=== PATIENT | male | born 1965 | race Caucasian/White ===

== ENCOUNTER 2023-05-06 20:46 | Emergency (ER) | payer SELFPAY ==
[2023-05-06] MEDS ORDERED: Sodium Chloride 0.9% 10 ML Syringe FLUSH PRN (20:57)
[2023-05-06] MEDS ORDERED: Promethazine 25 MG/ML SDV IM ONE (20:58)
[2023-05-06 21:07] LABS: BASOPHILS PERCENT AUTO 1.4 % (0.0-1.0); EOSINOPHILS PERCENT AUTO 7.7 % (1.0-3.0); HEMATOCRIT 45.6 % (40.0-54.0); HEMOGLOBIN 15.5 g/dL (14.0-18.0); LYMPHOCYTES PERCENT AUTO 42.1 % (20.5-50.1); NEUTROPHILS PERCENT AUTO 40.8 % (42.2-75.2); PLATELET COUNT,PLT 227 10^3/uL (150-450); RED BLOOD CELL COUNT 4.85 10^6/uL (4.6-6.2); WHITE BLOOD CELL COUNT,WBC 7.6 10^3/uL (5.0-10.0)
[2023-05-06 21:27] LABS: A/G RATIO 0.8; ALBUMIN 3.5 g/dL (3.4-5.0); ANION GAP 14.1 mEq/L (7-13); BILIRUBIN TOTAL 0.4 mg/dL (0.2-1.0); BUN/CREATININE RATIO 14.6 (No establ ref range); CALCIUM 7.8 mg/dL (8.5-10.1); CREATININE 0.82 mg/dL (0.70-1.30); EST CRCL DRUG DOSING (CG) 99.39 mL/min; MAGNESIUM 1.7 mg/dL (1.8-2.4); POTASSIUM,K 3.1 mmol/L (3.5-5.1); PROTEIN TOTAL,TP 7.9 g/dL (6.4-8.2)
[2023-05-06] MEDS ORDERED: Potassium Chloride 10 MEQ Tab.ER PO ONE (21:32)
[2023-05-06 21:40] LABS: CORONAVIRUS COVID-19 NAA NEGATIVE (NEGATIVE); INFLUENZA A NAA NEGATIVE (NEGATIVE); INFLUENZA B NAA NEGATIVE (NEGATIVE)
[2023-05-06] MEDS ORDERED: hydrALAZINE 20 MG/ML SDV IVPUSH ONE (21:46)
== END 2023-05-06 22:10 | disposition home or self-care (01) ==
LOC: DL.ED 20:46
DX: I10 Essential (primary) hypertension (principal); Z20.822 Contact with and (suspected) exposure to COVID-19
CPT/HCPCS: 0240U; 36415; 71045; 80053; 80307; 83735; 84443; 84484; 85025; 93005; 96372; 99284; A9270; J2550; J3490

== ENCOUNTER 2023-05-19 09:43 | Inpatient (IN) | payer BC ==
[2023-05-19] MEDS ORDERED: Sodium Chloride 0.9% 10 ML Syringe FLUSH PRN (09:57)
[2023-05-19] MEDS ORDERED: Thiamine 100 MG in Sodium Chloride 0.9% 100 ML IV ONE (09:58)
[2023-05-19] MEDS ORDERED: Ondansetron 4 MG/2 ML SDV IV ONE ×2 (09:58→13:11)
[2023-05-19] MEDS ORDERED: Sodium Chloride 0.9% 1,000 ML IV ONE ×2 (09:58→10:59)
[2023-05-19 10:07] LABS: BASOPHILS PERCENT AUTO 0.7 % (0.0-1.0); EOSINOPHILS PERCENT AUTO 1.6 % (1.0-3.0); HEMATOCRIT 47.5 % (40.0-54.0); LYMPHOCYTES PERCENT AUTO 41.1 % (20.5-50.1); MEAN CORPUSCULAR HEMOGLOBIN 32.4 pg (27.0-34.0); MEAN CORPUSCULAR HGB CONC 33.7 g/dL (33.0-35.0); MEAN CORPUSCULAR VOLUME 96.2 fL (80-100); NEUTROPHILS PERCENT AUTO 50.6 % (42.2-75.2); PLATELET COUNT,PLT 202 10^3/uL (150-450); RED BLOOD CELL COUNT 4.94 10^6/uL (4.6-6.2); WHITE BLOOD CELL COUNT,WBC 6.9 10^3/uL (5.0-10.0)
[2023-05-19 10:25] LABS: INR 1.1 (0.9-1.2); PTT,PARTIAL THROMBOPLSTIN TIME 23.3 SEC (22.0-34.0)
[2023-05-19 10:30] LABS: A/G RATIO 0.9; ALBUMIN 3.7 g/dL (3.4-5.0); ANION GAP 17.8 mEq/L (7-13); BILIRUBIN TOTAL 1.1 mg/dL (0.2-1.0); BUN/CREATININE RATIO 9.5 (No establ ref range); CALCIUM 8.9 mg/dL (8.5-10.1); CREATININE 1.05 mg/dL (0.70-1.30); EST CRCL DRUG DOSING (CG) 70.04 mL/min; MAGNESIUM 1.5 mg/dL (1.8-2.4); POTASSIUM,K 3.8 mmol/L (3.5-5.1)
[2023-05-19] MEDS ORDERED: Magnesium Sulfate/Water 2 GM in Premix Bag 1 BAG IV ONE ×2 (10:58→10:59)
[2023-05-19] MEDS ORDERED: Iopamidol 612 MG/ML 100 ML Bottle IVPUSH ONE (11:00)
[2023-05-19] MEDS ORDERED: Heparin Sodium 5,000 Units/ML Vial IVPUSH ONE (12:34)
[2023-05-19] MEDS: Heparin Sodium/0.45% NaCl 25,000 UNITS/500 ML BAG IV SCH (12:50)
[2023-05-19] MEDS ORDERED: Pantoprazole 40 MG Vial IVPUSH ONE (13:11)
[2023-05-19 13:21] LABS: APPEARANCE,URINE SLIGHTLY CLOUDY (CLEAR); BILIRUBIN,URINE NEGATIVE (NEGATIVE); COLOR,URINE DARK YELLOW (YELLOW); GLUCOSE,URINE NEGATIVE (NEGATIVE); KETONES,URINE TRACE (NEGATIVE); LEUKOCYTE ESTERASE,URINE NEGATIVE (NEGATIVE); NITRITE,URINE NEGATIVE (NEGATIVE); OCCULT BLOOD,URINE TRACE-INTACT (NEGATIVE); PH,URINE 6.5 (5.0-9.0); PROTEIN,URINE 100 (NEGATIVE); UROBILINOGEN,URINE 0.2 mg/dL (0.2-1.0)
[2023-05-19 13:28] LABS: AMPHETAMINES,URINE NEGATIVE (NEGATIVE); BARBITURATES,URINE NEGATIVE (NEGATIVE); BENZODIAZEPINE,URINE NEGATIVE (NEGATIVE); MDMA (ECSTASY), URINE NEGATIVE (NEGATIVE); METHADONE,URINE NEGATIVE (NEGATIVE); METHAMPHETAMINES,URINE NEGATIVE (NEGATIVE); OPIATES,URINE NEGATIVE (NEGATIVE); OXYCODONE,URINE NEGATIVE (NEGATIVE); PHENCYCLIDINE,URINE NEGATIVE (NEGATIVE); TCA,URINE NEGATIVE (NEGATIVE)
[2023-05-19 13:44] LABS: WBC,URINE 0-5 /HPF (0-5/HPF)
[2023-05-19 13:47] LABS: EPITHELIAL CELLS,URINE MODERATE /HPF (NOT SEEN)
[2023-05-19 13:49] LABS: MUCUS,URINE FEW /LPF (NOT SEEN)
[2023-05-19 13:51] LABS: AMORPHOUS SEDIMENT,URINE OCCASIONAL /HPF (NOT SEEN)
[2023-05-19 13:59] LABS: HYALINE CASTS,URINE RARE
[2023-05-19 14:06] LABS: BACTERIA,URINE NOT SEEN /HPF (0-FEW/HPF)
[2023-05-19] MEDS ORDERED: LORazepam 2 MG/ML SDV IVPUSH ONE (14:26)
[2023-05-19] MEDS ORDERED: Flumazenil 0.1 MG/ML 5 ML MDV IVPUSH PRN (14:26)
[2023-05-19] MEDS ORDERED: LORazepam 2 MG/ML SDV ONE (14:30)
[2023-05-19] MEDS ORDERED: Ondansetron 4 MG/2 ML SDV IVPUSH PRN (15:40)
[2023-05-19] MEDS ORDERED: chlordiazePOXIDE 25 MG Cap PO SCH ×2 (15:45→16:15)
[2023-05-19] MEDS ORDERED: MVI, Adult with Vitamin K 10 ML, Folic Acid 1 MG, Thiamine 100 MG in Lactated Ringers 1... IV ONE ×4 (16:15)
[2023-05-19] MEDS: Thiamine 100 MG in Sodium Chloride 0.9% 50 ML IV SCH (16:39)
[2023-05-19] MEDS: Nicotine 7 MG/24 Hr Patch TRDERM SCH (16:40)
[2023-05-19] MEDS: LORazepam 2 MG/ML SDV IV PRN ×4 (16:52→23:58)
[2023-05-19] MEDS: Pantoprazole 40 MG Vial IVPUSH SCH (16:53)
[2023-05-19] MEDS: Sodium Chloride 0.9% 1,000 ML IV SCH (17:47)
[2023-05-19] MEDS: cloNIDine 0.1 MG Tab PO PRN ×2 (19:45→23:58)
[2023-05-19] MEDS: Ondansetron 4 MG/2 ML SDV IVPUSH PRN (19:46)
[2023-05-19] MEDS: chlordiazePOXIDE 25 MG Cap PO SCH (20:00)
[2023-05-19] MEDS: hydrALAZINE 20 MG/ML SDV IVPUSH PRN (21:45)
[2023-05-19] MEDS: oxyCODONE 5 MG Tab PO PRN (21:51)
[2023-05-19] MEDS: Metoprolol Succinate 50 MG Tab.ER PO SCH (23:58)
[2023-05-19] MEDS: Acetaminophen 325 MG Tab PO PRN (23:59)
[2023-05-20] MEDS: Sodium Chloride 0.9% 1,000 ML IV SCH (02:24)
[2023-05-20] MEDS: hydrALAZINE 20 MG/ML SDV IVPUSH PRN ×2 (02:26→16:44)
[2023-05-20] MEDS: oxyCODONE 5 MG Tab PO PRN ×2 (02:28→14:11)
[2023-05-20] MEDS: Ondansetron 4 MG/2 ML SDV IVPUSH PRN (02:30)
[2023-05-20] MEDS: LORazepam 2 MG/ML SDV IV PRN ×12 (02:32→23:00)
[2023-05-20] MEDS: Heparin Sodium/0.45% NaCl 25,000 UNITS/500 ML BAG IV SCH ×2 (02:38→17:45)
[2023-05-20 06:21] LABS: BASOPHILS PERCENT AUTO 0.7 % (0.0-1.0); HEMATOCRIT 37.1 % (40.0-54.0); HEMOGLOBIN 12.2 g/dL (14.0-18.0); LYMPHOCYTES PERCENT AUTO 19.1 % (20.5-50.1); MEAN CORPUSCULAR HEMOGLOBIN 32.5 pg (27.0-34.0); MEAN CORPUSCULAR HGB CONC 32.9 g/dL (33.0-35.0); MEAN CORPUSCULAR VOLUME 98.9 fL (80-100); MONOCYTES PERCENT AUTO 7.5 % (2-8); NEUTROPHILS PERCENT AUTO 69.7 % (42.2-75.2); PLATELET COUNT,PLT 123 10^3/uL (150-450); RED BLOOD CELL COUNT 3.75 10^6/uL (4.6-6.2); WHITE BLOOD CELL COUNT,WBC 5.7 10^3/uL (5.0-10.0)
[2023-05-20 06:39] LABS: ALBUMIN 2.9 g/dL (3.4-5.0); ANION GAP 10.4 mEq/L (7-13); BILIRUBIN TOTAL 1.5 mg/dL (0.2-1.0); BUN/CREATININE RATIO 7.6 (No establ ref range); CALCIUM 6.9 mg/dL (8.5-10.1); CREATININE 0.92 mg/dL (0.70-1.30); EST CRCL DRUG DOSING (CG) 88.59 mL/min; POTASSIUM,K 3.4 mmol/L (3.5-5.1); PROTEIN TOTAL,TP 6.2 g/dL (6.4-8.2)
[2023-05-20 06:41] LABS: A/G RATIO 0.88
[2023-05-20] MEDS: Pantoprazole 40 MG Vial IVPUSH SCH (08:43)
[2023-05-20] MEDS: Thiamine 100 MG in Sodium Chloride 0.9% 50 ML IV SCH (08:43)
[2023-05-20] MEDS: chlordiazePOXIDE 25 MG Cap PO SCH ×3 (08:44→20:24)
[2023-05-20] MEDS: Metoprolol Succinate 50 MG Tab.ER PO SCH (08:44)
[2023-05-20] MEDS: Nicotine 7 MG/24 Hr Patch TRDERM SCH (08:47)
[2023-05-20] MEDS ORDERED: Calcium Gluconate 3 GM in Sodium Chloride 0.9% 100 ML IV ONE (08:57)
[2023-05-20] MEDS: OLANZapine 10 MG Vial IM PRN ×2 (10:22→16:10)
[2023-05-20] MEDS ORDERED: Potassium Chloride 20 MEQ in Premix Bag 1 BAG IV ONE (16:07)
[2023-05-20 16:38] LABS: INR 1.1 (0.9-1.2)
[2023-05-20] MEDS ORDERED: Haloperidol Lactate 5 MG/ML SDV IVPUSH ONE (21:32)
[2023-05-20] MEDS ORDERED: Haloperidol Lactate 5 MG/ML SDV IM ONE (21:35)
[2023-05-21] MEDS: Sodium Chloride 0.9% 1,000 ML IV SCH (04:37)
[2023-05-21] MEDS: LORazepam 2 MG/ML SDV IV PRN ×5 (04:49→22:16)
[2023-05-21 05:10] LABS: ALBUMIN 2.9 g/dL (3.4-5.0); ANION GAP 11.6 mEq/L (7-13); BILIRUBIN TOTAL 2.8 mg/dL (0.2-1.0); BUN/CREATININE RATIO 4.2 (No establ ref range); CALCIUM 7.8 mg/dL (8.5-10.1); CREATININE 0.71 mg/dL (0.70-1.30); EST CRCL DRUG DOSING (CG) 114.79 mL/min; POTASSIUM,K 3.6 mmol/L (3.5-5.1); PROTEIN TOTAL,TP 6.6 g/dL (6.4-8.2)
[2023-05-21 05:16] LABS: A/G RATIO 0.78
[2023-05-21] MEDS: Thiamine 100 MG in Sodium Chloride 0.9% 50 ML IV SCH (08:35)
[2023-05-21] MEDS: Metoprolol Succinate 50 MG Tab.ER PO SCH (08:35)
[2023-05-21] MEDS: chlordiazePOXIDE 25 MG Cap PO SCH ×3 (08:35→20:14)
[2023-05-21] MEDS: Pantoprazole 40 MG Vial IVPUSH SCH (08:36)
[2023-05-21] MEDS: Nicotine 7 MG/24 Hr Patch TRDERM SCH (08:36)
[2023-05-21] MEDS: Heparin Sodium/0.45% NaCl 25,000 UNITS/500 ML BAG IV SCH (09:07)
[2023-05-21] MEDS: Acetaminophen 325 MG Tab PO PRN (10:20)
[2023-05-21] MEDS: Ondansetron 4 MG/2 ML SDV IVPUSH PRN (10:24)
[2023-05-21] MEDS ORDERED: Calcium Gluconate 2 GM in Sodium Chloride 0.9% 100 ML IV ONE (10:28)
[2023-05-21] MEDS: Warfarin 2 MG Tab PO SCH (13:15)
[2023-05-21] MEDS ORDERED: Magnesium Sulfate/Water 2 GM in Premix Bag 1 BAG IV SCH (14:00)
[2023-05-21] MEDS ORDERED: Magnesium Sulfate/Water 4 GM in Premix Bag 1 BAG IV ONE (14:00)
[2023-05-21] MEDS: Magnesium Sulfate/Water 2 GM in Premix Bag 1 BAG IV SCH ×2 (14:27→15:57)
[2023-05-21] MEDS: hydrALAZINE 20 MG/ML SDV IVPUSH PRN (15:35)
[2023-05-21] MEDS: oxyCODONE 5 MG Tab PO PRN (20:13)
[2023-05-21] MEDS: OLANZapine 10 MG Vial IM PRN (23:00)
[2023-05-21] MEDS ORDERED: Haloperidol Lactate 5 MG/ML SDV IM ONE (23:13)
[2023-05-22] MEDS: Heparin Sodium/0.45% NaCl 25,000 UNITS/500 ML BAG IV SCH ×2 (00:08→14:56)
[2023-05-22] MEDS: Sodium Chloride 0.9% 1,000 ML IV SCH ×3 (02:21→23:07)
[2023-05-22] MEDS: LORazepam 2 MG/ML SDV IV PRN ×2 (05:08→10:10)
[2023-05-22 05:15] LABS: INR 1.2 (0.9-1.2); PROTHROMBIN TIME 12.2 SEC (9.0-12.0); PTT,PARTIAL THROMBOPLSTIN TIME 59.3 SEC (22.0-34.0)
[2023-05-22 05:22] LABS: ALBUMIN 2.9 g/dL (3.4-5.0); ANION GAP 13.3 mEq/L (7-13); BILIRUBIN TOTAL 3.3 mg/dL (0.2-1.0); BUN/CREATININE RATIO 3.9 (No establ ref range); CALCIUM 7.8 mg/dL (8.5-10.1); CREATININE 1.27 mg/dL (0.70-1.30); EST CRCL DRUG DOSING (CG) 64.17 mL/min; POTASSIUM,K 3.3 mmol/L (3.5-5.1); PROTEIN TOTAL,TP 6.7 g/dL (6.4-8.2)
[2023-05-22 05:23] LABS: A/G RATIO 0.76
[2023-05-22] MEDS: Metoprolol Succinate 50 MG Tab.ER PO SCH (09:20)
[2023-05-22] MEDS: Nicotine 7 MG/24 Hr Patch TRDERM SCH (09:20)
[2023-05-22] MEDS: chlordiazePOXIDE 25 MG Cap PO SCH ×3 (09:20→20:20)
[2023-05-22] MEDS: Pantoprazole 40 MG Vial IVPUSH SCH (09:23)
[2023-05-22] MEDS: Thiamine 100 MG in Sodium Chloride 0.9% 50 ML IV SCH (09:24)
[2023-05-22] MEDS: Warfarin 2 MG Tab PO SCH (14:54)
[2023-05-22] MEDS ORDERED: Potassium Chloride 20 MEQ in Premix Bag 1 BAG IV ONE (17:18)
[2023-05-22] MEDS ORDERED: Calcium Gluconate 2 GM in Sodium Chloride 0.9% 100 ML IV ONE (17:18)
[2023-05-22] MEDS: oxyCODONE 5 MG Tab PO PRN (20:20)
[2023-05-23] MEDS: oxyCODONE 5 MG Tab PO PRN ×3 (02:03→20:58)
[2023-05-23 03:40] LABS: ALBUMIN 2.9 g/dL (3.4-5.0); ANION GAP 12.7 mEq/L (7-13); BILIRUBIN TOTAL 3.3 mg/dL (0.2-1.0); BUN/CREATININE RATIO 5.7 (No establ ref range); CREATININE 0.88 mg/dL (0.70-1.30); EST CRCL DRUG DOSING (CG) 92.62 mL/min; POTASSIUM,K 3.7 mmol/L (3.5-5.1); PROTEIN TOTAL,TP 6.9 g/dL (6.4-8.2)
[2023-05-23 03:41] LABS: A/G RATIO 0.73
[2023-05-23] MEDS: Heparin Sodium/0.45% NaCl 25,000 UNITS/500 ML BAG IV SCH ×2 (05:47→20:23)
[2023-05-23 06:18] LABS: INR 1.7 (0.9-1.2); PROTHROMBIN TIME 17.5 SEC (9.0-12.0)
[2023-05-23] MEDS: Metoprolol Succinate 50 MG Tab.ER PO SCH (09:32)
[2023-05-23] MEDS: Thiamine 100 MG in Sodium Chloride 0.9% 50 ML IV SCH (09:32)
[2023-05-23] MEDS: Nicotine 7 MG/24 Hr Patch TRDERM SCH (09:32)
[2023-05-23] MEDS: Pantoprazole 40 MG Vial IVPUSH SCH (09:32)
[2023-05-23] MEDS: chlordiazePOXIDE 25 MG Cap PO SCH ×3 (09:32→20:21)
[2023-05-23] MEDS: Warfarin 2 MG Tab PO SCH (14:54)
[2023-05-23] MEDS: Acetaminophen 325 MG Tab PO PRN (17:51)
[2023-05-23] MEDS: hydrALAZINE 20 MG/ML SDV IVPUSH PRN (21:11)
[2023-05-24] MEDS: cloNIDine 0.1 MG Tab PO PRN (02:17)
[2023-05-24 03:40] LABS: ALBUMIN 2.8 g/dL (3.4-5.0); ANION GAP 13.4 mEq/L (7-13); BILIRUBIN TOTAL 3.2 mg/dL (0.2-1.0); BUN/CREATININE RATIO 7.7 (No establ ref range); CREATININE 0.78 mg/dL (0.70-1.30); EST CRCL DRUG DOSING (CG) 104.49 mL/min; POTASSIUM,K 3.4 mmol/L (3.5-5.1); PROTEIN TOTAL,TP 6.5 g/dL (6.4-8.2)
[2023-05-24 03:44] LABS: A/G RATIO 0.76
[2023-05-24 05:26] LABS: INR 4.8 (0.9-1.2)
[2023-05-24] MEDS: chlordiazePOXIDE 25 MG Cap PO SCH (08:15)
[2023-05-24] MEDS: Metoprolol Succinate 50 MG Tab.ER PO SCH (08:15)
[2023-05-24] MEDS: Pantoprazole 40 MG Vial IVPUSH SCH (08:15)
[2023-05-24] MEDS: Nicotine 7 MG/24 Hr Patch TRDERM SCH (08:20)
[2023-05-24] MEDS: Thiamine 100 MG in Sodium Chloride 0.9% 50 ML IV SCH (08:21)
[2023-05-24] MEDS: hydrALAZINE 20 MG/ML SDV IVPUSH PRN (19:41)
[2023-05-24] MEDS: oxyCODONE 5 MG Tab PO PRN (21:39)
[2023-05-25] MEDS: oxyCODONE 5 MG Tab PO PRN ×2 (04:09→14:44)
[2023-05-25 05:35] LABS: ALBUMIN 3.2 g/dL (3.4-5.0); ANION GAP 13.4 mEq/L (7-13); CALCIUM 8.3 mg/dL (8.5-10.1); POTASSIUM,K 3.4 mmol/L (3.5-5.1)
[2023-05-25 05:40] LABS: INR 2.8 (0.9-1.2); PROTHROMBIN TIME 27.5 SEC (9.0-12.0)
[2023-05-25 05:50] LABS: A/G RATIO 0.73; BUN/CREATININE RATIO 7.2 (No establ ref range); CREATININE 0.83 mg/dL (0.70-1.30); EST CRCL DRUG DOSING (CG) 98.19 mL/min; PROTEIN TOTAL,TP 7.6 g/dL (6.4-8.2)
[2023-05-25] MEDS: Metoprolol Succinate 50 MG Tab.ER PO SCH (08:47)
[2023-05-25] MEDS: Pantoprazole 40 MG Vial IVPUSH SCH (08:48)
[2023-05-25] MEDS: Nicotine 7 MG/24 Hr Patch TRDERM SCH (08:48)
[2023-05-25] MEDS: Thiamine 100 MG in Sodium Chloride 0.9% 50 ML IV SCH (08:52)
[2023-05-25] MEDS ORDERED: Magnesium Sulfate/Water 4 GM in Premix Bag 1 BAG IV ONE (18:12)
[2023-05-25] MEDS ORDERED: Magnesium Sulfate/Water 2 GM in Premix Bag 1 BAG IV ONE ×2 (18:28→21:00)
[2023-05-25] MEDS ORDERED: Thiamine 100 MG Tab PO SCH (21:00)
[2023-05-26] MEDS: oxyCODONE 5 MG Tab PO PRN (05:34)
[2023-05-26] MEDS: hydrALAZINE 20 MG/ML SDV IVPUSH PRN (05:55)
[2023-05-26] MEDS ORDERED: Pantoprazole 40 MG Tab.CR PO SCH (06:00)
[2023-05-26 06:01] LABS: ANION GAP 14.3 mEq/L (7-13); CALCIUM 7.7 mg/dL (8.5-10.1); CREATININE 0.7 mg/dL (0.70-1.30); EST CRCL DRUG DOSING (CG) 116.43 mL/min; POTASSIUM,K 3.3 mmol/L (3.5-5.1)
[2023-05-26 06:02] LABS: INR 1.8 (0.9-1.2); PROTHROMBIN TIME 17.9 SEC (9.0-12.0)
[2023-05-26] MEDS ORDERED: Potassium Chloride 10 MEQ Tab.ER PO ONE (08:01)
[2023-05-26] MEDS ORDERED: Magnesium Sulfate/Water 2 GM in Premix Bag 1 BAG IV ONE (08:19)
[2023-05-26] MEDS ORDERED: FLU (Fluarix Quad) QS2023-24(6MOS UP)/PF 60 MCG/0.5 ML Syringe IM ONE (08:45)
[2023-05-26] MEDS ORDERED: Hydrochlorothiazide 25 MG Tab PO SCH (09:00)
[2023-05-26] MEDS: Metoprolol Succinate 50 MG Tab.ER PO SCH (09:13)
[2023-05-26] MEDS: Nicotine 7 MG/24 Hr Patch TRDERM SCH (09:14)
[2023-05-26] MEDS ORDERED: Enoxaparin 100 MG/1 ML Syringe SUBCUT ONE (09:30)
[2023-05-26] MEDS ORDERED: Warfarin 2 MG Tab PO SCH ×2 (11:30→14:00)
== END 2023-05-26 11:25 | disposition home or self-care (01) | DRG 775 ==
LOC: DL.ED 09:43 → DL.MS 13:12 → MERGE 13:12 → DL.MS 05-23 15:13
PROVIDERS: ADMIT Internal Medicine; ATTEND Internal Medicine
DX: F10.129 Alcohol abuse with intoxication, unspecified (principal); I74.09 Other arterial embolism and thrombosis of abdominal aorta; K85.20 Alcohol induced acute pancreatitis without necrosis or infection; R56.9 Unspecified convulsions; C64.2 Malignant neoplasm of left kidney, except renal pelvis; I10 Essential (primary) hypertension; E83.42 Hypomagnesemia; N28.89 Other specified disorders of kidney and ureter; R53.1 Weakness; F17.210 Nicotine dependence, cigarettes, uncomplicated; F10.132 Alcohol abuse with withdrawal with perceptual disturbance; E87.6 Hypokalemia; E83.51 Hypocalcemia; Z79.899 Other long term (current) drug therapy; Z79.01 Long term (current) use of anticoagulants; Z56.0 Unemployment, unspecified
CPT/HCPCS: 36415; 71045; 71260; 74177; 80048; 80053; 80143; 80179; 80305-QW; 80307; 81001; 82140; 82150; 83690; 83735; 84484; 85025; 85610; 85730; 87045; 87046; 87899; 90686; 93005; 93010; 96365; 96366; 96368; 96375; 99223; 99231; 99232; 99233; 99239; 99285; 99285-25; A9270-GY; C9113; G0008; J0360; J0612; J1630; J1644; J1650; J2060; J2405; J3411; J3475; J3480; J3490; J7030; J7120; Q9967